=== PATIENT | male | born 1950 | race Caucasian/White ===

== ENCOUNTER 2018-10-16 08:14 | Emergency (ER) | payer MEDICARE, OTHER ==
--- NOTE | 2018-10-16 08:45 | EDM.PDOC ---
ED HPI GENERAL MEDICAL PROBLEM - General Chief Complaint: General Time Seen by Provider: 10/16/18 08:30 Source of Information: Reports: Patient History Limitations: Reports: No Limitations - History of Present Illness INITIAL COMMENTS - FREE TEXT/NARRATIVE: Pt is a 68 year old male with Afib and alerted LFTs, presents to emergency room with c/o dark tarry stool going on since 10/10/18. He describes stools dark chocolate colored sticky stools. The stool frequency has increased over the period of time. Presently he claims he has dark stools and some times are asso with bright red blood. Since last night he has been using toilet every 1-2 hours. Also he has chronic bleeding hemorrhoids. His stool have been more dark and liquid in the past 2 days. Last colonoscopy was 9 years ago and was advised once every 10 years. No abdominal pain or distension. No belching or burping. No heart burn. No nausea or vomiting. No back pain. Pt is from [facility], flew into town yesterday.He regularly goes to gym. + Weakness, dizziness, and shortness of of breath for past 2 day. Shortness of breath happen on walking for about 15 minutes.Dizzy sometimes when he stands. Pt claims he is not on iron pills, or taken Maalox or Mylanta in the past 1 wk. Onset: Gradual Onset Date: 10/10/18 Duration: Getting Worse Associated Symptoms: Denies: Confusion, Chest Pain, Cough, Diaphoresis, Fever/ Chills, Headaches, Nausea/Vomiting, Rash, Seizure, Shortness of Breath, Syncope , Weakness - Related Data Allergies Allergy/AdvReac Type Severity Reaction Status Date / Time allopurinol Allergy Rash Verified 10/16/18 08:34 Home Meds: Home Meds Apixaban [Eliquis] 5 mg PO BID 10/16/18 [History] ED ROS GENERAL - Review of Systems Review Of Systems: See Below Constitutional: Reports: Weakness, Fatigue. Denies: Fever, Chills, Malaise, Night Sweats, Diaphoresis HEENT: Denies: Ear Pain, Rhinitis, Throat Pain Respiratory: Reports: Shortness of Breath. Denies: Pleuritic Chest Pain, Cough , Sputum Cardiovascular: Denies: Chest Pain, Lightheadedness Endocrine: Denies: Fatigue GI/Abdominal: Reports: Black Stool, Bloody Stool, Diarrhea, Hematochezia, Melena. Denies: Abdominal Pain, Constipation, Hematemesis, Nausea, Vomiting : Denies: Dysuria, Frequency Musculoskeletal: Denies: Joint Pain, Joint Swelling Skin: Denies: Bruising, Pruritis, Rash Neurological: Denies: Confusion, Dizziness, Headache, Numbness, Tingling Psychiatric: Denies: Agitation, Confusion, Cravings Hematologic/Lymphatic: Denies: Easy Bleeding, Easy Bruising ED EXAM, GENERAL - Physical Exam Exam: See Below Exam Limited By: No Limitations General Appearance: Alert, WD/WN, No Apparent Distress Eye Exam: Bilateral Eye: EOMI, PERRL Ears: Normal External Exam, Normal Canal, Hearing Grossly Normal, Normal TMs Ear Exam: Bilateral Ear: Auricle Normal, Canal Normal, TM normal Nose: Normal Inspection, Normal Mucosa, No Blood Throat/Mouth: Normal Inspection, Normal Teeth, Normal Gums, Normal Oropharynx, Other (mild pallor of tongue and oral mucosa) Head: Atraumatic, Normocephalic Neck: Normal Inspection, Supple, Non-Tender, Full Range of Motion Respiratory/Chest: No Respiratory Distress, Lungs Clear, Normal Breath Sounds, No Accessory Muscle Use, Chest Non-Tender Cardiovascular: Normal Peripheral Pulses, Regular Rate, Rhythm, No Edema, Other (pansystolic murmur.) GI/Abdominal: Normal Bowel Sounds, Soft, Non-Tender, No Organomegaly, No Distention, No Abnormal Bruit, No Mass Rectal (Males) Exam: Normal Exam, Normal Rectal Tone, Bloody Stool, Hemorrhoids Extremities: Normal Inspection, Normal Range of Motion, Non-Tender, Normal Capillary Refill, No Pedal Edema Neurological: Alert, Oriented, CN II-XII Intact, Normal Cognition, Normal Gait, Normal Reflexes, No Motor/Sensory Deficits Skin Exam: Warm, Intact, Pallor EKG INTERPRETATION EKG Date: 10/16/18 Rhythm: A-Fib [place]: Normal P-Wave: Present QRS: Normal ST-T: Normal QT: Normal Course - Vital Signs Text/Narrative:: Pt is a 68 year old male who has been having painless tarry sticky stools for past 1 wk now. His frequency has increased and stools have turned from small tarry stool to frequent liquid bloody stool now. This does appear like on going GI bleed. In the past 2 days he claims he feels short of breath, dizzy and weak. No pain complaints. He does take elliquis for atrial fib, which might be aggravating his bleed. Physical exam shows mild pallor or mucosa. Rectal exam shows + pinkish bright blood smeared on tarry liquid stool. EKG shows rate controlled A-fib. Pt's CBC shows hemoglobin of 7.7gm. 2 units of PRBC transfusion ordered.Rest of the lab pending. Also IV protonix 40mg ordered. His troponin is 0.064 and the lab normal is 0.06. Very mild elevation could be related to stress of anemia on the myocardium. His CMP is back , shows potassium of 6.6, Creat is 1.35 with BUN of 63. LFT stable. HE has been started on NS at 125cc/hr. CT abdomen is back he does have cirrhosis with portal hypertension and small ascitic fluid. There is fluid around pancreas , but he has no abdominal pain or symptoms, I did order lipase, but does not appear like pancreatitis. His lipase is negative. Pt has been stable in the emergency room. I did contact [facility] and discuss patient with Dr. Burton, hospitalist loan services professional as he has on going GI bleed. He has agreed to accept patient. Pt will be transferred by [facility] ambulance. Pt is hemodynamically stable at the time of transfer. Further care per Dr. Burton. Last Recorded V/S: Last Vital Signs Temp 98.2 F 10/16/18 08:24 Pulse 92 10/16/18 08:24 Resp 18 10/16/18 08:24 BP 135/66 10/16/18 08:24 Pulse Ox 99 10/16/18 08:24 - Orders/Labs/Meds Orders: Active Orders 24 hr Category Date Time Status EKG Documentation Completion [RC] ASDIRECTED Care 10/16/18 08:38 Active Abdomen Pelvis wo Cont [CT] Stat Exams 10/16/18 08:39 Taken TROPONIN I [CHEM] Stat Lab 10/16/18 09:38 Ordered Pantoprazole [ProTONIX IV] Med 10/16/18 09:15 Active 40 mg IVPUSH DAILY Sodium Chloride 0.9% [Normal Saline] 1,000 ml Med 10/16/18 09:45 Active IV ASDIRECTED Sodium Chloride 0.9% [Saline Flush] Med 10/16/18 08:54 Active 10 ml FLUSH ASDIRECTED PRN Peripheral IV Insertion Adult [OM.PC] Routine Oth 10/16/18 08:54 Ordered Transfuse RBC [Transfuse Red Blood Cells] [COMM] Stat Oth 10/16/18 09:18 Ordered EKG 12 Lead [EK] Routine Ther 10/16/18 08:38 Ordered Medication Orders Sodium Chloride (Normal Saline) 1,000 mls @ 125 mls/hr IV ASDIRECTED SHANNA Pantoprazole Sodium (Protonix Iv) 40 mg IVPUSH DAILY SHANNA Last Admin: 10/16/18 09:46 Dose: 40 mg Sodium Chloride (Saline Flush) 10 ml FLUSH ASDIRECTED PRN PRN Reason: Keep Vein Open Last Admin: 10/16/18 09:48 Dose: 10 ml Admin: 10/16/18 09:40 Dose: 10 ml Labs: Laboratory Tests 10/16/18 10/16/18 10/16/18 Range/Units 08:50 08:50 08:50 WBC 8.6 (4.0-11.0) K/uL RBC 2.18 L (4.50-6.50) M/uL Hgb 7.7 L D (13.0-18.0) g/dL Hct 23.7 L D (40.0-54.0) % MCV 109 H (76-96) fL MCH 35.3 H (27.0-32.0) pg MCHC 32.5 (31.0-35.0) g/dL RDW 12.3 (11.0-16.0) % Plt Count 135 L D (150-400) K/uL MPV 10.0 (6.0-10.0) fL Neut % (Auto) 71.6 H (45.0-70.0) % Lymph % (Auto) 18.7 L (20.0-40.0) % [place] % (Auto) 8.5 (3.0-10.0) % Eos % (Auto) 0.9 L (1.0-5.0) % Baso % (Auto) 0.3 (0.0-0.5) % Neut # (Auto) 6.15 (2.00-7.50) K/uL Lymph # (Auto) 1.61 (1.50-4.00) K/uL [place] # (Auto) 0.73 (0.20-0.80) K/uL Eos # (Auto) 0.08 (0.04-0.40) K/uL Baso # (Auto) 0.03 (0.02-0.10) K/uL PT 17.2 H (9.0-11.5) sec INR 1.8 (1.0-3.5) APTT 26.3 (24.4-33.2) SECONDS Sodium 145 (136-145) mmol/L Potassium 6.6 H* (3.5-5.1) mmol/L Chloride 112 H (98-107) mmol/L Carbon Dioxide 27.0 (21.0-32.0) mmol/L Anion Gap 12.6 (5.0-15.0) mmol/L BUN 63 H* (8-26) mg/dL Creatinine 1.53 H (0.70-1.30) mg/dL Est Cr Clr Drug Dosing 48.53 mL/min Estimated GFR (MDRD) 45 L (>60) MLS/MIN BUN/Creatinine Ratio 41.2 H (6-25) Glucose 142 H (74-100) mg/dL Calcium 8.2 L (8.5-10.1) mg/dL Total Bilirubin 1.4 H (0.0-1.0) mg/dL AST 40 H (15-37) U/L ALT 38 (12-78) U/L Alkaline Phosphatase 48 (46-116) U/L Total Protein 6.1 L (6.4-8.2) g/dL Albumin 2.8 L (3.4-5.0) g/dL Globulin 3.3 (2.2-4.2) g/dL Albumin/Globulin Ratio 0.9 (0.8-2.0) Meds: Medications Generic Name Dose Route Start Last Admin Trade Name Freq PRN Reason Stop Dose Admin Sodium Chloride 1,000 mls @ 125 mls/hr 10/16/18 09:45 Normal Saline IV ASDIRECTED SHANNA Pantoprazole Sodium 40 mg 10/16/18 09:15 10/16/18 09:46 Protonix Iv IVPUSH 40 mg DAILY SHANNA Administration Sodium Chloride 10 ml 10/16/18 08:54 10/16/18 09:48 Saline Flush FLUSH 10 ml ASDIRECTED PRN Administration Keep Vein Open Departure - Departure Time of Disposition: 10:45 Disposition: DC/Tfer to Acute Hospital 02 Condition: Fair Clinical Impression: GI bleed, Liver disease, chronic, with cirrhosis - Discharge Information *PRESCRIPTION DRUG MONITORING PROGRAM REVIEWED*: Not Applicable *COPY OF PRESCRIPTION DRUG MONITORING REPORT IN PATIENT CATA: Not Applicable Forms: ED Department Discharge - Problem List & Annotations (1) GI bleed SNOMED Code(s): 07088401 Code(s): K92.2 - GASTROINTESTINAL HEMORRHAGE, UNSPECIFIED Status: Acute Current Visit: Yes (2) Liver disease, chronic, with cirrhosis SNOMED Code(s): 711217818 Code(s): K74.60 - UNSPECIFIED CIRRHOSIS OF LIVER; K76.9 - LIVER DISEASE, UNSPECIFIED Status: Acute Current Visit: Yes - Problem List Review Problem List Initiated/Reviewed/Updated: Yes - My Orders Last 24 Hours: My Active Orders 10/16/18 08:38 EKG Documentation Completion [RC] ASDIRECTED EKG 12 Lead [EK] Routine 10/16/18 08:39 Abdomen Pelvis wo Cont [CT] Stat 10/16/18 08:54 Sodium Chloride 0.9% [Saline Flush] 10 ml FLUSH ASDIRECTED PRN Peripheral IV Insertion Adult [OM.PC] Routine 10/16/18 09:15 Pantoprazole [ProTONIX IV] 40 mg IVPUSH DAILY 10/16/18 09:18 Transfuse RBC [Transfuse Red Blood Cells] [COMM] Stat 10/16/18 09:38 TROPONIN I [CHEM] Stat 10/16/18 09:45 Sodium Chloride 0.9% [Normal Saline] 1,000 ml IV ASDIRECTED - Assessment/Plan Last 24 Hours: My Active Orders 10/16/18 08:38 EKG Documentation Completion [RC] ASDIRECTED EKG 12 Lead [EK] Routine 10/16/18 08:39 Abdomen Pelvis wo Cont [CT] Stat 10/16/18 08:54 Sodium Chloride 0.9% [Saline Flush] 10 ml FLUSH ASDIRECTED PRN Peripheral IV Insertion Adult [OM.PC] Routine 10/16/18 09:15 Pantoprazole [ProTONIX IV] 40 mg IVPUSH DAILY 10/16/18 09:18 Transfuse RBC [Transfuse Red Blood Cells] [COMM] Stat 10/16/18 09:38 TROPONIN I [CHEM] Stat 10/16/18 09:45 Sodium Chloride 0.9% [Normal Saline] 1,000 ml IV ASDIRECTED Assessment:: GI bleed chronic liver disease with Cirrhosis Plan: I did contact [facility] and discuss patient with Dr. Burton, hospitalist loan services professional as he has on going GI bleed. He has agreed to accept patient. Pt will be transferred by [facility] ambulance. Pt is hemodynamically stable at the time of transfer. Further care per Dr. Burton.
[2018-10-16] MEDS ORDERED: Pantoprazole 40 MG Vial IVPUSH SCH (09:15)
[2018-10-16] MEDS: Sodium Chloride 0.9% 10 ML Syringe FLUSH PRN ×2 (09:40→09:48)
[2018-10-16] MEDS ORDERED: Sodium Chloride 0.9% 1,000 ML IV SCH (09:45)
--- NOTE | 2018-10-16 15:05 | CRLCT ---
DATE OF SERVICE: 10/16/18 CLINICAL DATA: GI bleed UNENHANCED ABDOMEN AND PELVIC CT: Multislice acquisition through the abdomen and pelvis without IV or oral contrast was performed. No priors. The lungs bases are clear. The heart is enlarged. There are calcifications in the region of the mitral valve and aortic valve. There are mild coronary artery calcifications. No pericardial effusion. The liver is abnormal. It has lobulated contour consistent with cirrhosis. No focal hepatic lesions. The gallbladder is abnormal. There is a single calcified gallstone noted within the gallbladder. The gallbladder wall appears thickening and edematous consistent with cholecystitis. The spleen appears normal. The pancreas is normal size. There is mild peripancreatic fat stranding adjacent to the head of the pancreas suggesting the possibility of pancreatitis. No evidence of pancreatic mass. The right and left adrenals appear normal. There is mild atrophy of both kidneys. There is an 11 mm fluid density lesion protruding from the right renal cortex, consistent with a benign cyst. No nephrocalcinosis or nephrolithiasis. No hydronephrosis or hydroureter. The bladder is partially fluid filled. There is apparent diffuse bladder wall thickening. This is probably related to nondistention. Cystitis should be considered. There is diffuse thickening of the gastric wall in the fundus and body of the stomach. This is probably related to nondistention. Gastritis should be considered. There is diverticulosis of the descending and sigmoid colon. No evidence of diverticulitis. There is mild mural thickening throughout the sigmoid colon and rectum. An infectious or inflammatory process should be considered. There is free fluid adjacent to the liver and within the pelvis consistent with ascites. No evidence of appendicitis. No free air. No dilated loops of bowel. There are nonspecific mesenteric and periaortic nodes. No adenopathy. No aortic aneurysm. IMPRESSION: Multiple findings as discussed above. [id number] [facility]
== END 2018-10-16 11:29 ==
LOC: LB.ED 08:14
DX: K92.2 Gastrointestinal hemorrhage, unspecified (principal); K74.60 Unspecified cirrhosis of liver; Z88.8 Allergy status to other drugs, medicaments and biological substances
CPT/HCPCS: 36415; 36430; 74176; 80053; 82274; 83690; 84484; 85025; 85610; 85730; 86850; 86900; 86901; 86920; 86922; 93005; 96374; 99285; A0425; A0429; C9113; J7030; P9016

== ENCOUNTER 2018-10-21 02:52 | Observation (INO) | payer MEDICARE, OTHER ==
[2018-10-21] MEDS ORDERED: METRONIDAZOLE 500 MG PO SCH (05:00)
[2018-10-21] MEDS ORDERED: Non-Formulary Medication 1 Each (Cholecalciferol (Vitamin D3) [Vitamin D3] 1,000 UNIT) PO SCH (05:00)
[2018-10-21] MEDS ORDERED: Sodium Chloride 0.9% 1,000 ML IV SCH (05:15)
--- NOTE | 2018-10-21 05:27 | ER ---
DATE OF SERVICE: 10/21/2018 HISTORY OF PRESENT ILLNESS: A 68-year-old male here with his and son. The patient became dizzy, he passed out, he fell at his son's home during the night, and hit his head on a door. The patient denies any injuries from the fall. He states that he feels fine other than when he gets up, he is very weak and dizzy. The patient has recent history of GI bleed. He was seen here on 10/16/2018, at which time, his hemoglobin was 7.7. The patient was started on a blood transfusion here. It was an obvious GI bleed. He was transferred to [place] by ambulance where further evaluation was done. He had an EGD as well as a colonoscopy. His family tells me that he had 1 polyp removed, had a lesion on it, and 2 other small areas were biopsied for testing purposes. He was monitored in [place] for a day or so after the procedures were done and he was feeling better, he was discharged home. The patient states that his legs feel heavy when he is trying to walk, and when he stands up, he does get lightheaded again. The patient is taking both Levaquin and Flagyl. He is also on Toprol-XL 100 mg b.i.d. as well as Cozaar 100 mg a day. He takes gabapentin 1200 mg b.i.d. and digoxin as well as Clutier-3 and vitamin D3. OBJECTIVE: GENERAL APPEARANCE: The patient is awake and alert. He is in no obvious distress. He states that he feels fine. VITAL SIGNS: Reviewed. Blood pressure 115/59, pulse is 59, he is afebrile, oxygen saturation level is 100% on room air, respirations are 20. HEENT: Eyes, pupils equal, round, and reactive to light. EOMs are intact. Head is normocephalic. There is no tenderness with palpation of the patient's head or neck. Oral mucous membranes are slightly dry. Tonsils are not enlarged or injected. Pharynx not inflamed. NECK: Supple. LUNGS: Clear. CARDIAC: Heart sounds distinct. ABDOMEN: Soft, protuberant, no tenderness noted with palpation. Bowel sounds are present. SKIN: Warm and dry. LABORATORY DATA: Labs tonight include a CBC showing hemoglobin now at 9.1, which is an improvement. White count is normal. Comprehensive metabolic panel shows his potassium level is now normal at 4.3, it was elevated at 6.6 previously. BUN is elevated at 45, creatinine is 2.37, GFR is now 27, GFR was 45 when he was seen here on 10/16/2018 and the patient's AST is at 71. He denies any alcohol use since Wednesday. CT of the abdomen and pelvis was also ordered and results are currently pending. DIAGNOSES: 1. Weakness. 2. Anemia due to gastrointestinal bleeding. 3. Hypotension. 4. Acute kidney disease. TREATMENT PLAN: The patient will be admitted for observation. We will start some IV fluids at 100 mL an hour. We will hold his morning blood pressure medications and monitor the patient. Orthostatic blood pressures will be done soon as well. CRS/MODL /[id number] MTDNadir
[2018-10-21] MEDS ORDERED: Ferrous Sulfate 325 MG Tab PO SCH (07:00)
[2018-10-21] MEDS ORDERED: FEBUXOSTAT 40 MG PO SCH (08:00)
[2018-10-21] MEDS ORDERED: [UNRECOGNIZED DRUG - OTHER] PO SCH (08:00)
[2018-10-21] MEDS ORDERED: LEVOFLOXACIN 250 MG PO SCH (08:00)
[2018-10-21] MEDS ORDERED: EPA PO SCH (08:00)
[2018-10-21] MEDS ORDERED: DIGOXIN 250 MCG PO SCH (08:00)
[2018-10-21] MEDS ORDERED: FISH OIL PO SCH (08:00)
[2018-10-21] MEDS ORDERED: OMEGA PO SCH (08:00)
[2018-10-21] MEDS ORDERED: DHA PO SCH (08:00)
[2018-10-21] MEDS ORDERED: Cholecalciferol (Vitamin D3) 1,000 Unit Tab PO SCH (08:00)
--- NOTE | 2018-10-21 08:35 | CT ---
Date of Service: 10/21/18 Clinical Data: Dizziness - Hx of GI bleed. UNENHANCED CHEST CT: Multislice acquisition through the chest without IV contrast was performed. No priors. Breathing motion artifact degrades image quality. The lungs are clear. No pneumothorax. No pleural effusions. No areas of consolidation. The heart is mildly enlarged. There are calcifications in the region of the aortic and mitral valves. There are mild coronary artery calcifications. No significant pericardial effusion. There is degenerative disk disease throughout the thoracic spine. There is anterior wedging of the T11 vertebra, age indeterminate. No other significant findings. IMPRESSION: No acute abnormalities. Other findings as discussed above. UNENHANCED ABDOMEN AND PELVIC CT: Multislice axial acquisition without IV or oral contrast was performed. Comparison is made to a prior exam dated 10/16/18. There is persistent ascites throughout the peritoneal cavity. It has increased in volume from the prior study. The liver remains abnormal with lobulated contour consistent with cirrhosis. The gallbladder remains abnormal with cholelithiasis and thickened gallbladder wall, as well as pericholecystic fluid. Again, cholecystitis is suspected. The exam is otherwise essentially unchanged from the prior study. No free air. No dilated loops of bowel. No aortic aneurysm. [id number] [facility]
--- NOTE | 2018-10-21 09:18 | ADMIT ---
DATE OF SERVICE: 10/21/2018 The patient was admitted through the emergency room last night after he became dizzy and had a syncopal episode. He fell and hit the door on the way to the floor. He was staying at his son's home and this woke him up. The patient has had a recent GI bleed. He was seen here on the 16 of October and transferred to [place] where he received blood transfusions. He had a colonoscopy as well as an EGD. Family tells me that one polyp was removed that had a lesion on it and there were a couple of other small spots that were looked at. The patient was doing better when he left [place], but now he tells me that when he stands up, he starts to become dizzy again. The vital signs when entering the emergency room revealed a blood pressure that was low at 115/59, pulse 59, O2 sats were 100%. He was afebrile. Labs reveal the patient's creatinine has climbed slightly to 2.37, hemoglobin is also elevated at 9.1 compared to the previous labs, GFR dropped from 45 to now 27. The patient was diagnosed with hypotension, acute kidney disease, weakness, syncopal episode , and anemia to a gastrointestinal bleed recently. He will be admitted for observation. We will start IV fluids at 100 mL an hour of normal saline. I will hold his morning blood pressure medications and we will start ferrous sulfate 325 mg [address] Pa will take over care of this patient today. For further details, refer to Dr. Pa's updates. CRS/MODL /[id number] MTDD
[2018-10-21] MEDS: METRONIDAZOLE 500 MG PO SCH ×3 (09:35→23:26)
[2018-10-21] MEDS: Non-Formulary Medication 1 Each (Gabapentin [Neurontin] 1,200 MG) PO SCH ×2 (09:36→19:39)
[2018-10-21] MEDS ORDERED: Fish Oil/Omega-3 Fatty Acids 1 Gm Cap ONE (09:42)
--- NOTE | 2018-10-21 17:08 | PCM.DCSUM1 ---
Discharge Summary - Hospital Course Free Text/Narrative:: Pt was admitted for dizzy spells and weakness. On the work up in the emergency room, his creat was 2.3 which was elevated form 1.64 on . With the assumption of prerenal failure, he was admitted for Iv hydration. His blood pressure was stable at 115/59. His orthostatic blood pressure reading were normal. Apparently after 1 litre slow IV hydration, his creat has only improved to 2.5 and his BUN is still 25. IV hydration was discontinued. Pt and his spouse claims that he had some altered liver function and his primary care has been following this and also on further questioning he claims that he had seen light bulb assembler 1 year ago. All his care is through [facility] in [place]. I have gone over the labs work and also his CT abdomen findings, and this is my assumption. Pt recently has had a massive GI bleed where his hemoglobin dropped down to 7.7gm, needing 2 units of blood transfusion and transferred to [facility].Got Upper and lower GI scope, which showed 4 colonic polyp which were snared and also angiodysplasia of the colon. Apparently his bleeding stopped and he was discharged. His discharge hemoglobin is 9.1. Pt has Cirrhosis of liver and chronic renal failure. He pena gained fluid. Comparing his CT from 10.16.[address] on 10/21/18, his ascitis has got worsened. This might be related to fluid over load and also some hypoxic injury asso with severe blood loss anemia. Also he does have Chronic renal failure and his renal function have dropped due to anemia and under lying cirrhosis and fluid over load. There might be some hypoxic renal injury too. These should gradually improve with time or get worse. His vital presently are stable, he is tolerating oral diet. His dizziness and weakness might be from his hemoglobin of 9.1 which should improve with time. But his weakness might be multifactorial too. His blood pressure is stable and on the lower end of normal. I have advised to stop losartan and metoprolol for now. Also considering his elevated renal function hold the Levaquin. I did offer discharge and outpatient followup with GI for his cirrhosis of liver ( apparently new diagnosis of cirrhosis and GI bleed) and also light bulb assembler followup at [facility]. Pt's family prefers he be going back to [place] and have his further workup done there. I am hesitatnt to starrt him on spironolactone at this time as he is planning to go to [place] tomorrow and his blood pressure is at the lower end on normal and he is weak and dizzy already and spironolactone can decrease his blood pressure further. His vital have been stable all through the hospitalization. I feel I am not getting complete history form the patient or his spouse. They both say they never knew he had cirrhosis. Patient claims he was on Celebrex for pain and that might have triggered the cirrhosis. Pt has been discharge, advised to fly back to [place] and try to get followup scheduled with his primary care for furhte workup. Pt and family understand and agree with the plan. Brief History: Presented to emergency room with wekanes and dizziness. Kindly see H&P for details Diagnosis: Stroke: No Modified [place] Scale: No Symptoms at All Modified [place] Scale Score: 0 - Discharge Data Discharge Date: 10/22/18 Discharge Disposition: Home, Self-Care 01 Condition: Good - Patient Instructions Diet: Renal Diet Fluid Restriction: 1000 mL Activity: As Tolerated Driving: May Drive Today Showering/Bathing: May Shower - Discharge Plan *PRESCRIPTION DRUG MONITORING PROGRAM REVIEWED*: Not Applicable *COPY OF PRESCRIPTION DRUG MONITORING REPORT IN PATIENT CATA: Not Applicable Home Medications: Home Meds Cholecalciferol (Vitamin D3) [Vitamin D3] 1,000 unit PO ASDIRECTED 10/21/18 [ History] Digoxin 250 mcg PO DAILY 10/21/18 [History] Febuxostat [Uloric] 40 mg PO DAILY 10/21/18 [History] Gabapentin [Neurontin] 1,200 mg PO BID 10/21/18 [History] [place]-3/DHA/Epa/Fish Oil [Fish Oil 1,400 MG Softgel] 1 each PO DAILY 10/21/18 [ History] Triamcinolone Acetonide [Triamcinolone Acetonide 0.1% Crm] 1 applic .XX ASDIRECTED PRN 10/21/18 [History] metroNIDAZOLE [Flagyl] 500 mg PO Q8H 10/21/18 [History] Patient Handouts: Anemia, Cirrhosis, Chronic Kidney Disease, Adult, Easy-to- Read Forms: ED Department Discharge Referrals: PCP,None [Primary Care Provider] - - Discharge Summary/Plan Comment DC Time >30 min.: Yes Discharge Summary/Plan Comment: Pt has been discharge, advised to fly back to [place] and try to get followup scheduled with his primary care for furhte workup. Pt and family understand and agree with the plan. - General Info Date of Service: 10/22/18 Functional Status: Reports: Pain Controlled, Tolerating Diet, Ambulating, Urinating - Review of Systems General: Reports: Weakness. Denies: Fever, Chills HEENT: Denies: Headaches, Sinus Congestion Pulmonary: Denies: Shortness of Breath, Cough, Sputum, Hemoptysis Cardiovascular: Denies: Chest Pain, Palpitations Gastrointestinal: Denies: Abdominal Pain, Diarrhea, Difficulty Swallowing, Nausea, Vomiting Genitourinary: Denies: Dysuria, Frequency Skin: Denies: Bruising, Pruritis, Rash Neurological: Denies: Confusion, Dizziness, Headache, Numbness, Tingling - Patient Data Vitals - Most Recent: Last Vital Signs Temp 98.6 F 10/21/18 15:53 Pulse 73 10/21/18 15:53 Resp 18 10/21/18 15:53 BP 113/65 10/21/18 15:53 Pulse Ox 100 10/21/18 15:53 Weight - Most Recent: 113.398 kg Lab Results - Last 24 hrs: Laboratory Results - last 24 hr 10/21/18 10/21/18 10/21/18 Range/Units 03:40 03:40 03:40 WBC 9.3 (4.0-11.0) K/uL RBC 2.68 L (4.50-6.50) M/uL Hgb 9.1 L (13.0-18.0) g/dL Hct 27.9 L (40.0-54.0) % MCV 104 H (76-96) fL MCH 34.0 H (27.0-32.0) pg MCHC 32.6 (31.0-35.0) g/dL RDW 16.4 H (11.0-16.0) % Plt Count 171 D (150-400) K/uL MPV 10.0 (6.0-10.0) fL Neut % (Auto) 59.2 (45.0-70.0) % Lymph % (Auto) 25.1 (20.0-40.0) % [place] % (Auto) 11.9 H (3.0-10.0) % Eos % (Auto) 3.6 (1.0-5.0) % Baso % (Auto) 0.2 (0.0-0.5) % Neut # (Auto) 5.51 (2.00-7.50) K/uL Lymph # (Auto) 2.34 (1.50-4.00) K/uL [place] # (Auto) 1.11 H (0.20-0.80) K/uL Eos # (Auto) 0.34 (0.04-0.40) K/uL Baso # (Auto) 0.02 (0.02-0.10) K/uL PT 14.3 H (9.0-11.5) sec INR 1.5 (1.0-3.5) Sodium 135 L (136-145) mmol/L Potassium 4.3 D (3.5-5.1) mmol/L Chloride 101 (98-107) mmol/L Carbon Dioxide 25.0 (21.0-32.0) mmol/L Anion Gap 13.3 (5.0-15.0) mmol/L BUN 45 H D (8-26) mg/dL Creatinine 2.37 H D (0.70-1.30) mg/dL Est Cr Clr Drug Dosing 31.33 mL/min Estimated GFR (MDRD) 27 L (>60) MLS/MIN BUN/Creatinine Ratio 19.0 (6-25) Glucose 112 H (74-100) mg/dL Calcium 7.6 L (8.5-10.1) mg/dL Total Bilirubin 0.7 D (0.0-1.0) mg/dL AST 71 H (15-37) U/L ALT 62 (12-78) U/L Alkaline Phosphatase 63 (46-116) U/L Total Protein 6.7 (6.4-8.2) g/dL Albumin 3.1 L (3.4-5.0) g/dL Globulin 3.6 (2.2-4.2) g/dL Albumin/Globulin Ratio 0.9 (0.8-2.0) Ethyl Alcohol (0.0-0.0) mg/dL 10/21/18 10/21/18 Range/Units 03:40 14:45 WBC (4.0-11.0) K/uL RBC (4.50-6.50) M/uL Hgb (13.0-18.0) g/dL Hct (40.0-54.0) % MCV (76-96) fL MCH (27.0-32.0) pg MCHC (31.0-35.0) g/dL RDW (11.0-16.0) % Plt Count (150-400) K/uL MPV (6.0-10.0) fL Neut % (Auto) (45.0-70.0) % Lymph % (Auto) (20.0-40.0) % [place] % (Auto) (3.0-10.0) % Eos % (Auto) (1.0-5.0) % Baso % (Auto) (0.0-0.5) % Neut # (Auto) (2.00-7.50) K/uL Lymph # (Auto) (1.50-4.00) K/uL [place] # (Auto) (0.20-0.80) K/uL Eos # (Auto) (0.04-0.40) K/uL Baso # (Auto) (0.02-0.10) K/uL PT (9.0-11.5) sec INR (1.0-3.5) Sodium 134 L (136-145) mmol/L Potassium 4.2 (3.5-5.1) mmol/L Chloride 102 (98-107) mmol/L Carbon Dioxide 23.7 (21.0-32.0) mmol/L Anion Gap 12.5 (5.0-15.0) mmol/L BUN 45 H (8-26) mg/dL Creatinine 2.25 H (0.70-1.30) mg/dL Est Cr Clr Drug Dosing 33.00 mL/min Estimated GFR (MDRD) 29 L (>60) MLS/MIN BUN/Creatinine Ratio 20.0 (6-25) Glucose 146 H D (74-100) mg/dL Calcium 7.5 L (8.5-10.1) mg/dL Total Bilirubin (0.0-1.0) mg/dL AST (15-37) U/L ALT (12-78) U/L Alkaline Phosphatase (46-116) U/L Total Protein (6.4-8.2) g/dL Albumin (3.4-5.0) g/dL Globulin (2.2-4.2) g/dL Albumin/Globulin Ratio (0.8-2.0) Ethyl Alcohol 0.0 (0.0-0.0) mg/dL Med Orders - Current: Current Medications Cholecalciferol (Vitamin D3) 1,000 units PO DAILY [facility] Last Admin: 10/21/18 09:35 Dose: 1,000 units Ferrous Sulfate (Ferrous Sulfate) 325 mg PO WITHBREAKFAST [facility] Last Admin: 10/21/18 09:35 Dose: 325 mg Sodium Chloride (Normal Saline) 1,000 mls @ 100 mls/hr IV ASDIRECTED [facility] Last Admin: 10/21/18 08:10 Dose: 100 mls/hr Non-Formulary Medication (Digoxin [Digoxin]) 250 mcg PO DAILY [facility] Last Admin: 10/21/18 09:37 Dose: Not Given Non-Formulary Medication (Febuxostat [Uloric]) 40 mg PO DAILY [facility] Last Admin: 10/21/18 09:36 Dose: 40 mg Non-Formulary Medication (Gabapentin [Neurontin]) 1,200 mg PO BID [facility] Last Admin: 10/21/18 09:36 Dose: 1,200 mg Non-Formulary Medication (Levofloxacin [Levaquin]) 250 mg PO DAILY [facility] Last Admin: 10/21/18 09:36 Dose: 250 mg Non-Formulary Medication (Losartan [Cozaar]) 100 mg PO DAILY [facility] Metoprolol Tartrate (100mg Tablets) 100 mg PO BID [facility] Non-Formulary Medication ([place]-3/Dha/Epa/Fish Oil [Fish Oil 1,400 Mg Softgel]) 1 each PO DAILY [facility] Last Admin: 10/21/18 09:37 Dose: 1 each (Triamcinolone Acetonide [ Triamcinolone Acetonide 0.1% Crm 1 applic .XX ASDIRECTED PRN PRN Reason: Other Non-Formulary Medication (Metronidazole [Flagyl]) 500 mg PO Q8H [facility] Last Admin: 10/21/18 09:35 Dose: 500 mg Discontinued Medications Fish Oil (Fish Oil) Confirm Administered Dose 1 gm .ROUTE .STK-MED ONE Stop: 10/21/18 09:43 Last Admin: 10/21/18 12:22 Dose: Not Given Non-Formulary Medication (Metronidazole [Flagyl]) 500 mg PO Q8H [facility] Last Admin: 10/21/18 12:22 Dose: Not Given - Exam General: Reports: Alert, Oriented, Cooperative HEENT: Reports: Pupils Equal, Pupils Reactive, EOMI, Mucous Membr. Moist/[place] Neck: Reports: Supple Lungs: Reports: Clear to Auscultation, Normal Respiratory Effort Cardiovascular: Reports: Regular Rate, Regular Rhythm GI/Abdominal Exam: Normal Bowel Sounds, Soft, No Mass, Distended (from ascitis) Extremities: Normal Inspection, Normal Range of Motion, Non-Tender, Normal Capillary Refill, Pedal Edema (pittting 3 + upto the knee level.)
[2018-10-21] MEDS ORDERED: METOPROLOL TARTRATE 100 MG PO SCH (20:00)
[2018-10-22] MEDS ORDERED: Ferrous Sulfate 325 MG Tab PO SCH (08:00)
[2018-10-22] MEDS ORDERED: Non-Formulary Medication 1 Each (Losartan [Cozaar] 100 MG) PO SCH (08:00)
== END 2018-10-22 07:25 | disposition home or self-care (01) ==
LOC: LB.ED 02:52 → LB.MS 04:40 → UNDOADMOB 04:40 → LB.MS 04:54
PROVIDERS: ADMIT Physician Assistant; ATTEND Physician Assistant
DX: I95.9 Hypotension, unspecified (principal); D64.9 Anemia, unspecified; K92.1 Melena; N28.9 Disorder of kidney and ureter, unspecified; Z88.8 Allergy status to other drugs, medicaments and biological substances; Z79.899 Other long term (current) drug therapy
CPT/HCPCS: 36415; 71250; 74176; 80048; 80053; 85025; 85610; 99285; A9270; G0480; J7030; 96360; 96361; G0378